=== PATIENT | male | born 1990 | race Hispanic/Latino ===

== ENCOUNTER 2022-07-26 11:54 | Emergency (ER) | payer OTHER, SELFPAY ==
--- NOTE | ~2022-07-26 | XR_ITS ---
Portable chest x-ray Comparison: None Clinical History: Cough Findings: Lungs are clear, without focal consolidation or pleural effusion. Cardiomediastinal silho uette is unremarkable. Bones and soft tissues are unremarkable. Impression: Normal chest. Reviewed, dictated and finalized at location . CTOR OF STRATEGIC COMMUNICATIONS Impression: Normal chest.
[2022-07-26 11:55] VITALS: BP 147/83; PULSE 109; RESP 16; TEMP 36.4; O2SAT 100
[2022-07-26 12:17] VITALS: O2SAT 99
[2022-07-26 13:17] LABS: Influenza A QL RT-PCR Negative (Negative); Influenza B QL RT-PCR Negative (Negative); SARS-CoV-2 RNA PCR Negative
[2022-07-26] MEDS: LIDOCAINE HCL 2% VISC SOLN 15 ML UDC PO (14:49)
[2022-07-26] MEDS: ACETAMINOPHEN 500 MG TABLET 1000 MG PO (14:50)
[2022-07-26] MEDS: ONDANSETRON HCL ODT 4 MG TABLET PO (14:50)
[2022-07-26] MEDS: BENZONATATE 100 MG CAPSULE 200 MG PO (14:50)
--- NOTE | 2022-07-26 15:05 | ED.URI ---
HPI - URI/Sore Throat General Chief Complaint: Upper Respiratory Infection Stated Complaint: upper respiratory Time Seen by Provider: 07/26/22 13:31 Source: patient Mode of arrival: ambulatory Limitations: no limitations History of Present Illness HPI Narrative: Patient is a 32-year-old male who presents to the ED with report of upper respiratory symptoms. Patient reports he began feeling unwell 1.5 days ago. He reports having cough, congestion, sore throat, headache, body aches, intermittent nausea. He has been taking Tylenol and wpev-tle-cocivso cough medicine for his symptoms. Denies any documented fever. Denies vomiting, abdominal pain, difficulty breathing. No sick contacts that he is aware of. Related Data Home Medications Medication Instructions Recorded Confirmed alprazolam 0.5 mg tablet 0.5 mg PO BID 05/18/19 pantoprazole 40 mg tablet,delayed 40 mg PO HS 05/18/19 07/26/22 release (Protonix) Allergies Allergy/AdvReac Type Severity Reaction Status Date / Time azithromycin Allergy Intermediate Unknown Verified 07/26/22 12:24 Penicillins Allergy Intermediate Unknown Verified 07/26/22 12:24 ibuprofen Allergy Mild Unknown Verified 07/26/22 12:24 naproxen Allergy Mild Unknown Verified 07/26/22 12:24 tramadol Allergy Mild Unknown Verified 07/26/22 12:24 Review of Systems Review of Systems: CONSTITUTIONAL: Denies fever, chills, or sweats. ENT: See HPI. CARDIOVASCULAR: Denies chest pain. RESPIRATORY: See HPI. GASTROINTESTINAL: See HPI. GENITOURINARY: Denies dysuria or hematuria. SKIN: Denies rash or itching. MUSCULOSKELETAL: See HPI. NEUROLOGIC: See HPI. All systems reviewed & are unremarkable except as noted in HPI and below PMFSH Past Medical History Medical History (Updated 07/26/22 @ 19:18 by Nadya Santos PA-C) Anxiety Surgical History Surgical History (Updated 07/26/22 @ 19:18 by Nadya Santos PA-C) No pertinent past surgical history Social History Social History Smoking status: Former smoker Gender identity (if verbalized by the patient): Male Exam Narrative: GENERAL: Mildly ill appearing, well-nourished, non-toxic, in no acute distress. HEAD: Normocephalic, atraumatic. EYES: PERRLA/EOMI, conjunctiva clear. ENT: Mild posterior pharynx erythema. No significant tonsillar hypertrophy or exudate. Uvula midline. Tolerating secretions. NECK: Supple. No adenopathy, no masses. RESPIRATORY: Airway patent, respirations nonlabored. Clear to auscultation bilaterally, no rales, rhonchi, wheezing. CARDIOVASCULAR: Regular rate and rhythm without murmurs, rubs, or gallops. Radial pulses 2+ and equal bilaterally. ABDOMINAL: Soft, nontender, nondistended, no hepatosplenomegaly. Normoactive BS. MUSCULOSKELETAL: Moves all extremities. Strength/ROM intact without gross deformities. SKIN: Warm, dry, normal color. No rashes. NEURO: A&O X3. Speech clear. Cranial nerves II-XII grossly intact. Steady gait. No ataxic movements. PSYCHIATRIC: Appropriate mood and affect. Normal interaction. Course Vital Signs Vital signs: Vital Signs Temperature 97.6 F 07/26/22 11:55 Pulse Rate 109 H 07/26/22 11:55 Respiratory Rate 16 07/26/22 11:55 Blood Pressure 147/83 H 07/26/22 11:55 Pulse Oximetry 100 07/26/22 11:55 Temperature 97.6 F 07/26/22 11:55 Pulse Rate 101 H 07/26/22 15:45 Respiratory Rate 18 07/26/22 15:45 Blood Pressure 138/81 07/26/22 15:45 Pulse Oximetry 100 07/26/22 15:45 Oxygen Delivery Room Air 07/26/22 12:17 MDM - URI/Sore Throat MDM Narrative Medical decision making narrative: Patient presented to ED with 2-day history of URI symptoms. Patient mildly tachycardic upon arrival, afebrile, otherwise stable. Tachycardia resolved by the time of my evaluation. COVID, influenza negative. Chest x-ray clear. Discussed that symptoms likely viral in nature. Attempted to give patient I
--- NOTE | 2022-07-26 15:43 | PC.NURSE ---
Pt refusing strep swab at this time
[2022-07-26 15:45] VITALS: BP 138/81; PULSE 101; RESP 18; O2SAT 100
== END 2022-07-26 16:01 | disposition home or self-care (01) ==
PROVIDERS: Emergency Medicine; Emergency Provider Physician Assistant
DX: J06.9 Acute upper respiratory infection, unspecified (principal); Z20.822 Contact with and (suspected) exposure to COVID-19; F41.9 Anxiety disorder, unspecified; Z87.891 Personal history of nicotine dependence
CPT/HCPCS: 71045; 87636; 99283; A9270

== ENCOUNTER 2024-05-20 15:35 | Emergency (ER) | payer OTHER, SELFPAY ==
[2024-05-20 15:48] VITALS: BP 147/95; PULSE 105; RESP 17; TEMP 36.8; O2SAT 100
== END 2024-05-20 18:17 | disposition left against medical advice (07) ==
LOC: ANHED 18:01
DX: H53.8 Other visual disturbances (principal)
CPT/HCPCS: 99199

== ENCOUNTER 2025-01-10 11:04 | Emergency (ER) | payer OTHER, SELFPAY ==
--- OUTSIDE RECORDS SUMMARY | 2025-01-10 11:07 | XMS_ITS | Clinical Summary ---
Author Organization [facility] Address [address] [place] [id number] Care Team Providers Care Customer Service Technician Name Role Phone Unavailable Primary Care Provider Unavailabl e Social History Tobacco Use Types Packs/Day Years Used Date Smoking Tobacco: Never Assessed Sex and Gender Information Value Date Recorded Sex Assigned at Not on file Legal Sex Male 8:02 PM CDT Gender Identity Not on file Sexual Orientation Not on file Plan of Treatment Health Maintenance Due Date Last Done Comments Annual Physical 1993 Hepatitis C 2008 DTaP, Tdap and Td Vaccines ( 1 - Tdap) 2009 Hepatitis B Vaccines (1 of 3 - 19+ 3-dose series) 2009 HPV Vaccines (1 - 3-dose SCD M series) 2017 COVID-19 Vaccine (2023-2 5 season) 2024 Meningococcal B Vaccine Aged Out No l onger eligible based on patient's age to complete this topic Meningococcal Vaccine Aged Out No jeni rick eligible based on patient's age to complete this topic Pneumococcal Vaccine: Pediat rics (0 to 5 Years) and At-Risk Patients (6 to 49 Years) Aged Out No longer eligible b ased on patient's age to complete this topic RSV Immunizations Under 20 Months Aged Out No longer eligible based on patient's age to complete this topic
--- OUTSIDE RECORDS SUMMARY | 2025-01-10 11:07 | XMS_ITS | Referral Summary ---
Author Organization [facility] Address [address] [place] [phone] Care Team Providers Care Retail Zone Specialist Name Role Phone Unknown, Notinfile Primary Care Provider Unavail able Allergies Active Allergy Reactions Criticality Noted Date Comments Ibuprofen Naproxen Penicillins Tramadol Medications guaiFENesin-dex tromethorphan ER (MUCINEX DM) 600-30 mg tablet extended release 12 hr Take 1 tablet by mouth 2 (two) times a day as needed (cough, congestion) 20 tablet 02/09/2024 Active chlorhexidine (PERIDEX) 0.12 % solution Swish and spit 15 mL 2 (two) times a day 120 mL 02/09/2024 Active oxyCODONE (ROXICODONE) 5 mg immediate release tabletIndicatio ns:Pain Take 1 tablet (5 mg total) by mouth every 6 (six) hours as needed for pain for up to 6 doses 6 tablet 06/01/2024 Active acetaminophen (TYLENOL) 500 mg tablet Take 2 tablets (1,000 mg total) by mouth every 6 (six) hours as needed for pain 30 tablet 06/01/2024 Active acetaminophen (TYLENOL) 500 mg tablet Take 1-2 tablets (500-1,000 mg total) by mouth every 6 (six) hours as needed for pain (1 tablet for mild to moderate pain. 2 tablets for severe pain) 30 tablet 06/03/2024 Active Social History Tobacco Use Types Packs/Day Years Used Date Smoking Tobacco: Never Assessed Personal Safety Answer Date Recorded Have you ever been in or are you currently in a harmful physical or emotional relationship or is someone making you feel afraid or unsafe? Denies 06/03/2024 Sex and Gender Information Value Date Recorded Sex Assigned at Not on file Legal Sex Male 8:28 AM BEHAVIORAL HEALTH CARE COORDINATOR Gender Identity Not on file Sexual Orientation Not on file Last Filed Vital Signs Vital Sign Reading Time Taken Comments Blood Pressure 171/98 06/03/2024 12:05 PM BEHAVIORAL HEALTH CARE COORDINATOR Pulse 107 06/03/2024 12:05 PM BEHAVIORAL HEALTH CARE COORDINATOR Temperature 36.8 C (98.2 F) 06/03/2024 12:05 PM BEHAVIORAL HEALTH CARE COORDINATOR Respiratory Rate 18 06/03/2024 12:05 PM BEHAVIORAL HEALTH CARE COORDINATOR Oxygen Saturation 97% 06/03/2024 12:05 PM BEHAVIORAL HEALTH CARE COORDINATOR Inhaled Oxygen Concentration - - Weight 77.1 kg (170 lb) 06/03/2024 12:19 PM BEHAVIORAL HEALTH CARE COORDINATOR Height 165.1 cm (5' 5) 06/03/2024 12:19 PM BEHAVIORAL HEALTH CARE COORDINATOR Body Mass Index 28.29 06/03/2024 12:19 PM BEHAVIORAL HEALTH CARE COORDINATOR Plan of Treatment Not on file Insurance Care Teams Retail Zone Specialist Relationship Specialty Start Date End Date Unknown, Notinfile PCP - General 02/10/24
--- OUTSIDE RECORDS SUMMARY | 2025-01-10 11:07 | XMS_ITS | Clinical Summary ---
Author Organization 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 INSTALLER Gender Identity Not on file Sexual Orientation Not on file Last Filed Vital Signs Vital Sign Reading Time Taken Comments Blood Pressure 171/98 06/03/2024 12:05 PM FAN INSTALLER Pulse 107 06/03/2024 12:05 PM FAN INSTALLER Temperature 36.8 C (98.2 F) 06/03/2024 12:05 PM FAN INSTALLER Respiratory Rate 18 06/03/2024 12:05 PM FAN INSTALLER Oxygen Saturation 97% 06/03/2024 12:05 PM FAN INSTALLER Inhaled Oxygen Concentration - - Weight 77.1 kg (170 lb) 06/03/2024 12:19 PM FAN INSTALLER Height 165.1 cm (5' 5) 06/03/2024 12:19 PM FAN INSTALLER Body Mass Index 28.29 06/03/2024 12:19 PM FAN INSTALLER Plan of Treatment Health Maintenance Due Date Last Done Comments Depression Screening 1990 Hepatitis C Screening 1990 DTaP/Tdap/Td Vaccine (1 - Tdap) 2001 Varicella Vaccines (1 of 2 - 13+ 2-dose series) 2003 Hepatitis B Screening 2008 Regular Well Visit/Exam 18-64 2008 Pneumococcal vaccine <65 (2 of 2 - PPSV23) 03/26/2017 01/29/2017 HPV Vaccines (1 - 3-dose SCDM series) 2017 Covid-19 Vaccine ( - season) 2024, 09/21/2020 Influenza Vaccine (#1) 2025 8, 04/10/2017, 04/09/[address] [place] [address] [place] [address] [facility] Care Teams Art Consultant Relationship Specialty Start Date End Date Unknown, Notinfile PCP - General 02/10/24
[2025-01-10 11:12] VITALS: BP 129/88; PULSE 116; RESP 20; TEMP 36.4; O2SAT 100
--- OUTSIDE RECORDS SUMMARY | 2025-01-10 11:38 | XMS_ITS | Clinical Summary ---
Author Organization [facility] Address [address] [place] [phone] Care Team Providers Care Bread Jockey Name Role Phone Unknown, Notinfile Primary Care [...] on file Legal Sex Male 8:28 AM SECURITY AMBASSADOR Gender Identity Not on file Sexual Orientation Not on file Last Filed Vital Signs Vital Sign Reading Time Taken Comments Blood Pressure 171/98 06/03/2024 12:05 PM SECURITY AMBASSADOR Pulse 107 06/03/2024 12:05 PM SECURITY AMBASSADOR Temperature 36.8 C (98.2 F) 06/03/2024 12:05 PM SECURITY AMBASSADOR Respiratory Rate 18 06/03/2024 12:05 PM SECURITY AMBASSADOR Oxygen Saturation 97% 06/03/2024 12:05 PM SECURITY AMBASSADOR Inhaled Oxygen Concentration - - Weight 77.1 kg (170 lb) 06/03/2024 12:19 PM SECURITY AMBASSADOR Height 165.1 cm (5' 5) 06/03/2024 12:19 PM SECURITY AMBASSADOR Body Mass Index 28.29 06/03/2024 12:19 PM SECURITY AMBASSADOR Plan of Treatment Health Maintenance Due Date [...] Vaccine (#1) 2025 8, 04/10/2017, 04/09/[address] [place] [address] [facility] Care Teams Bread Jockey Relationship Specialty Start Date End Date Unknown, Notinfile PCP - General 02/10/24
--- OUTSIDE RECORDS SUMMARY | 2025-01-10 11:38 | XMS_ITS | Referral Summary ---
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 Gender Identity Not on file Sexual Orientation Not on file Last Filed Vital Signs Vital Sign Reading Time Taken Comments Blood Pressure 171/98 06/03/2024 12:05 PM NETWORK FIELD ENGINEER Pulse 107 06/03/2024 12:05 PM NETWORK FIELD ENGINEER Temperature 36.8 C (98.2 F) 06/03/2024 12:05 PM NETWORK FIELD ENGINEER Respiratory Rate 18 06/03/2024 12:05 PM NETWORK FIELD ENGINEER Oxygen Saturation 97% 06/03/2024 12:05 PM NETWORK FIELD ENGINEER Inhaled Oxygen Concentration - - Weight 77.1 kg (170 lb) 06/03/2024 12:19 PM NETWORK FIELD ENGINEER Height 165.1 cm (5' 5) 06/03/2024 12:19 PM NETWORK FIELD ENGINEER Body Mass Index 28.29 06/03/2024 12:19 PM NETWORK FIELD ENGINEER Plan of Treatment Not on file Insurance Care Teams Monorail Hooker Relationship Specialty Start Date End Date Unknown, Notinfile PCP - General 02/10/24
--- OUTSIDE RECORDS SUMMARY | 2025-01-10 11:38 | XMS_ITS | Clinical Summary ---
Author Organization [facility] Address [address] [place] [id number] Care Team Providers Care Bagman/Woman Name Role Phone Unavailable Primary Care Provider [...]
--- NOTE | 2025-01-10 11:47 | ED_ITS ---
HPI - General Adult General Chief complaint: Dental/Oral Stated complaint: tooth pain Time Seen by Provider: 01/10/25 11:33 History of Present Illness HPI narrative: 34 old male presents emergency department for evaluation for dental pain. Patient reports pain has been ongoing for the last few weeks. Patient has been taking Tylenol for pain control. Patient reports he does have follow-up with a dentist scheduled. Related Data Home Medications ?Medication ?Instructions ?Recorded ?Confirmed ?Last Taken ?Type alprazolam 0.5 mg tablet 0.5 mg PO BID 05/18/19 Unknown History pantoprazole 40 mg tablet,delayed 40 mg PO HS 05/18/19 07/26/22 Unknown History release (Protonix) Allergies Allergy/AdvReac Type Severity Reaction Status Date / Time azithromycin Allergy Intermediate Unknown Verified 01/10/25 11:26 Penicillins Allergy Intermediate Unknown Verified 01/10/25 11:26 ibuprofen Allergy Mild Unknown Verified 01/10/25 11:26 naproxen Allergy Mild Unknown Verified 01/10/25 11:26 tramadol Allergy Mild Unknown Verified 01/10/25 11:26 Review of Systems Review of Systems: All systems reviewed & are unremarkable except as noted in HPI and below PMFSH Past Medical History Medical History (Updated 01/10/25 @ 11:48 by Alex Parrish MD) Anxiety Surgical History Surgical History (Updated 07/26/22 @ 19:18 by Nadya Santos PA-C) No pertinent past surgical history Social History Social History Smoking status: Former smoker Gender identity (if verbalized by the patient): Male Exam Narrative: APPEARANCE: Well appearing, no pain, no distress, well-nourished. HEAD: normocephalic, atraumatic. EYES: PERRLA/EOMI, conjunctivae clear. NOSE: Normal no drainage Mouth: No trismus, no dental abscess EARS:TMS clear with good light reflex. THROAT: Pharynx clear, no exudate. NECK: Supple. No adenopathy, no masses. RESPIRATORY: Airway patent, respirations nonlabored. Clear to auscultation bilaterally, no rales, rhonchi, wheezing. CARDIOVASCULAR: Regular rate and rhythm without murmurs rubs or gallops. ABDOMINAL: Soft, nontender, nondistended, normal bowel sounds MUSCULOSKELETAL: Moves all extremities. Strength/ROM intact, No edema, No calf tenderness. NEURO: Alert. Cranial nerves II through XII intact. Good gait. Good coordination SKIN: Warm, dry. Normal Color Course Vital Signs Vital signs: Vital Signs Temperature 97.5 F L 01/10/25 11:12 Pulse Rate 116 H 01/10/25 11:12 Respiratory Rate 20 01/10/25 11:12 Blood Pressure 129/88 01/10/25 11:12 Pulse Oximetry 100 01/10/25 11:12 Temperature 97.5 F L 01/10/25 11:12 Pulse Rate 116 H 01/10/25 11:12 Respiratory Rate 20 01/10/25 11:12 Blood Pressure 129/88 01/10/25 11:12 Pulse Oximetry 100 01/10/25 11:12 Medical Decision Making MDM Narrative Medical decision making narrative: [age] old male presents emergency department for evaluation for dental pain. Patient was provided antibiotics and started on medications for pain control as well. Patient states he does have follow-up with his dentist. Differential Diagnosis Differential Diagnosis: Dental infection, toothache, dental abscess, trismus Vital Signs Vital Signs: Vital Signs Temperature 97.5 F L 01/10/25 11:12 Pulse Rate 116 H 01/10/25 11:12 Respiratory Rate 20 01/10/25 11:12 Blood Pressure 129/88 01/10/25 11:12 Pulse Oximetry 100 01/10/25 11:12 Temperature 97.5 F L 01/10/25 11:12 Pulse Rate 116 H 01/10/25 11:12 Respiratory Rate 20 01/10/25 11:12 Blood Pressure 129/88 01/10/25 11:12 Pulse Oximetry 100 01/10/25 11:12 Discharge Plan Discharge Clinical Impression: Toothache Patient Disposition: Home Condition: Stable Instructions: Antibiotic Form, Toothache (ED) Additional Instructions: Antibiotic as directed until completed. [place] for pain control. Have close follow-up with your dentist as scheduled. Patient Language: Jamaican Prescriptions: New clindamycin HCl [Cleocin HCl] 300 mg capsule 300 mg PO Q6H 7 Days Qty: 28 0RF hydrocodone-acetaminophen 5-325 mg tablet 1 tablet PO Q12H PRN (Reason: pain) 5 Days Qty: 10 0RF No Action benzonatate 200 mg capsule 200 mg PO TID PRN (Reason: cough) Qty: 20 0RF ondansetron 4 mg tablet,disintegrating 4 mg PO Q8H PRN (Reason: nausea and vomiting) Qty: 20 0RF alprazolam 0.5 mg Tablet 0.5 mg PO BID pantoprazole [Protonix] 40 mg Tablet,Delayed Release (Dr/Ec) 40 mg PO HS chlorhexidine gluconate [Peridex] 0.12 % mouthwash 15 ml BUCCAL BID Qty: 1500 0RF clindamycin HCl 150 mg capsule 150 mg PO Q6H 10 Days Qty: 40 0RF Follow-up/Referrals: PHYSICIAN,PROGRAM PLANNER [Primary Care Provider] -
[2025-01-10] MEDS: HYDROcodone/acetaminophen (*CRX) 5-325 MG TABLET 1 TAB PO (11:53)
[2025-01-10] MEDS: CLINDAMYCIN HCL 150 MG CAP 300 MG PO (11:53)
== END 2025-01-10 12:03 | disposition home or self-care (01) ==
PROVIDERS: Emergency Provider Emergency Medicine
DX: K08.89 Other specified disorders of teeth and supporting structures (principal)
CPT/HCPCS: 99283; A9270

== ENCOUNTER 2025-03-09 08:08 | Emergency (ER) | payer OTHER, SELFPAY ==
[2025-03-09 08:14] VITALS: BP 164/119; PULSE 99; RESP 16; TEMP 36.8; O2SAT 100
--- OUTSIDE RECORDS SUMMARY | 2025-03-09 08:24 | XMS_ITS | Clinical Summary ---
Author Organization [facility] Address [address] [place] [address] Care Team Providers Care Meat Packer Name Role Phone Unavailable Primary Care Provider Unavailabl e Source Comments [facility],non-[facility] Affiliates and Associated Physician Practices is amultiple site organization consisting of ambulatory clinics and hospital sitesin [place], [place], [place] and [place]. This disclosure is being madepursuant to the Care Everywhere program and may not contain all information available regarding this patient. Last updated 18.[facility] Social History Tobacco Use Types Packs/Day Years Used Date Smoking Tobacco: Never Assessed Sex and Gender Information Value Date Recorded Sex Assigned at Not on file Legal Sex Male 5:42 AM CRYPTOGRAPHIC TECHNICIAN Gender Identity Not on file Sexual Orientation Not on file Plan of Treatment Upcoming Encounters Date Type Department Care Team (Late st Contact Info) Description 08/17/2025 10:20 AM CRYPTOGRAPHIC TECHNICIAN Office Visit [facility] - Internal Medicine [address] [place] [address] [address] [place] [address] David Rhodes MD [address] [place] [phone] Health Maintenance Due Date Last Done Comments HIV SCREENING 2005 HEPATITIS C SCREENING 07/19/2008 DTAP/TDAP/TD VACCINES (1 - Tdap) 2009 HEPATITIS B VACCINE (1 of 3 - 19+ 3-dose series) 2009 HPV VACCINE (1 - 3-dose SCDM series) 2017 DEPRESSION SCREENING 06/17/2024 COVID-19 VACCINE (3 2024-2 6 season) 2025 02/03/2021, 09/21/2020 INFLUENZA VACCINE (#1) 2025 8, 04/10/2017, 04/09/2009 ZOSTER VACCINE (1 of 2) 2040 HIB VACCINE Aged Out No longer eligi ble based on patient's age to complete this topic MENINGOCOCCAL (Group B) VACCINE SHARED DECISION-MAKING Aged Out No longer eligible based on patient's age to complete this topic MENINGOCOCCAL GROUPS A/C/Y/W VACCINE Aged Out No longer eligible b ased on patient's age to complete this topic PNEUMOCOCCAL VACCINE Aged Out No long er eligible based on patient's age to complete this topic Insurance MEDICAID - OUT OF [facility]
--- OUTSIDE RECORDS SUMMARY | 2025-03-09 08:24 | XMS_ITS | Clinical Summary ---
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 Gender Identity Not on file Sexual Orientation Not on file Last Filed Vital Signs Vital Sign Reading Time Taken Comments Blood Pressure 171/98 06/03/2024 12:05 PM ELECTROGALVANIZING MACHINE OPERATOR Pulse 107 06/03/2024 12:05 PM ELECTROGALVANIZING MACHINE OPERATOR Temperature 36.8 C (98.2 F) 06/03/2024 12:05 PM ELECTROGALVANIZING MACHINE OPERATOR Respiratory Rate 18 06/03/2024 12:05 PM ELECTROGALVANIZING MACHINE OPERATOR Oxygen Saturation 97% 06/03/2024 12:05 PM ELECTROGALVANIZING MACHINE OPERATOR Inhaled Oxygen Concentration - - Weight 77.1 kg (170 lb) 06/03/2024 12:19 PM ELECTROGALVANIZING MACHINE OPERATOR Height 165.1 cm (5' 5) 06/03/2024 12:19 PM ELECTROGALVANIZING MACHINE OPERATOR Body Mass Index 28.29 06/03/2024 12:19 PM ELECTROGALVANIZING MACHINE OPERATOR Plan of Treatment Health Maintenance Due Date Last Done Comments Depression Screening 1990 Hepatitis C Screening 1990 DTaP/Tdap/Td Vaccine (1 - Tdap) 2001 Varicella Vaccines (1 of 2 - 13+ 2-dose series) 2003 Hepatitis B Screening 2008 Regular Well Visit/Exam 18-64 2008 Pneumococcal vaccine <65 (2 of 2 - PPSV23, PCV20, or PCV21) 03/26/2017 01/29/2017 HPV Vaccines (1 - 3-dose SCDM series) 2017 Covid-19 Vaccine (3 - season) 2025, 09/21/2020 Influenza Vaccine (#1) 2025 8, 04/10/2017, 04/09/2009 Insurance [facility] Care Teams Construction Worker Relationship Specialty Start Date End Date Unknown, Notinfile PCP - General 02/10/24
--- OUTSIDE RECORDS SUMMARY | 2025-03-09 08:24 | XMS_ITS | Clinical Summary ---
Author Organization [facility] Address [address] [place] [id number] Care Team Providers Care Bill Hiker Name Role Phone Unavailable Primary Care Provider [...] series) 2017 COVID-19 Vaccine (2023-2 5 season) 2025 Meningococcal B Vaccine Aged Out No l [...]
--- NOTE | 2025-03-09 09:23 | ED_ITS ---
HPI - General Adult General Chief complaint: Skin/Abscess/Foreign Body Stated complaint: Skin infection to L thigh? Time Seen by Provider: 03/09/25 08:15 History of Present Illness HPI narrative: This is a 34-year-old male with a history of abscess and anxiety presenting with an abscess to his left thigh. Patient says he noticed a red bump 3 days ago. Has been getting progressively worse. No systemic signs of illness such as fevers chills nausea vomiting diarrhea. Patient has history of MRSA abscess. Family history of boils. Patient is incredibly anxious and asking if he is going to . Related Data Home Medications ?Medication ?Instructions ?Recorded ?Confirmed ?Last Taken ?Type albuterol sulfate 90 mcg/actuation inhalation 03/09/25 03/08/25 History aerosol inhaler Allergies Allergy/AdvReac Type Severity Reaction Status Date / Time azithromycin Allergy Intermediate Unknown Verified 03/09/25 08:26 Penicillins Allergy Intermediate Unknown Verified 03/09/25 08:26 ibuprofen Allergy Mild Unknown Verified 03/09/25 08:26 naproxen Allergy Mild Unknown Verified 03/09/25 08:26 tramadol Allergy Mild Unknown Verified 03/09/25 08:26 [facility] Past Medical History Medical History (Updated 03/09/25 @ 09:27 by Rashaad Shaffer MD) Anxiety Surgical History Surgical History (Updated 07/26/22 @ 19:18 by Nadya Santos PA-C) No pertinent past surgical history Social History Social History Smoking status: Former smoker Gender identity (if verbalized by the patient): Male Exam Narrative: APPEARANCE: Patient is incredibly anxious Head: atraumatic. EYES: EOMI, NOSE: Atraumatic NECK: Trachea midline RESPIRATORY: No increased rate of breathing CARDIOVASCULAR: RRR, ABDOMINAL: Non-distended MUSCULOSKELETAl: No obvious deformities NEURO: Alert. Moving 4/4 extremities SKIN:: Focal exam of the left inner thigh revealed a 2 x 2 cm area of fluctuance with some mild induration and erythema. Point of care ultrasound s howed a superficial fluid collection with cobblestoning. No free air. No crepitus. PSYCHIATRIC: Normal affect Course Vital Signs Vital signs: Vital Signs Temperature 98.2 F 03/09/25 08:14 Pulse Rate 99 03/09/25 08:14 Respiratory Rate 16 03/09/25 08:14 Blood Pressure 164/119 H 03/09/25 08:14 Pulse Oximetry 100 03/09/25 08:14 Oxygen Delivery Room Air 03/09/25 08:14 Temperature 98.2 F 03/09/25 08:14 Pulse Rate 99 03/09/25 08:14 Respiratory Rate 16 03/09/25 08:14 Blood Pressure 164/119 H 03/09/25 08:14 Pulse Oximetry 100 03/09/25 08:14 Oxygen Delivery Room Air 03/09/25 08:14 Procedures Abscess I/D lower extremity: Date of Incision: 03/09/25 Side (if applicable): left Local Anesthetic: bupivacaine 0.25% Amount of anesthesia used (mL): 10 Technique: incised with #11 blade Amount of fluid expressed (mL): 3 Irrigation: No Packing used?: none I&D Results: Pus Complications: pain Medical Decision Making MDM Narrative Medical decision making narrative: -Course: Anxious 34-year-old male presenting with a small abscess to his left inner thigh. Exam shows a small area of fluctuance with some mild induration. Point of care ultrasound showed a superficial see fluid collection and some cobblestoning. No free air ultrasound exam. No crepitus on exam. No systemic signs of illness. And incision and drainage was performed. Patient will be discharged on clindamycin and given tramadol for pain. Patient has frequently asked for stronger pain medications and declined Tylenol and Toradol. -DDX includes but is not limited to: Anxiety, abscess, cellulitis, drug-seeking -Co-morbidities complicating care: Anxiety Vital Signs Vital Signs: Vital Signs Temperature 98.2 F 03/09/25 08:14 Pulse Rate 99 03/09/25 08:14 Respiratory Rate 16 03/09/25 08:14 Blood Pressure 164/119 H 03/09/25 08:14 Pulse Oximetry 100 03/09/25 08:14 Oxygen Delivery Room Air 03/09/25 08:14 Temperature 98.2 F 03/09/25 08:14 Pulse Rate 99 03/09/25 08:14 Respiratory Rate 16 03/09/25 08:14 Blood Pressure 164/119 H 03/09/25 08:14 Pulse Oximetry 100 03/09/25 08:14 Oxygen Delivery Room Air 03/09/25 08:14 Discharge Plan Discharge Clinical Impression: Abscess Patient Disposition: Home Condition: Stable Instructions: Antibiotic Form, Abscess (ED) Additional Instructions: Please complete the antibiotics as instructed. Please follow-up with your primary care physician or the physician listed below. Use tylenol and tramadol for pain. Return if you develop fevers, or if the abscess is reaccumulating. Patient Language: Vietnamese Prescriptions: New clindamycin HCl [Cleocin HCl] 300 mg capsule 300 mg PO Q6H 7 Days Qty: 28 0RF acetaminophen 500 mg tablet 1,000 mg PO TID PRN (Reason: yamileth) 7 Days Qty: 42 0RF tramadol 50 mg tablet 50 mg PO Q6H PRN (Reason: pain) Qty: 7 0RF No Action albuterol sulfate 90 mcg/actuation HFA aerosol inhaler INHALATION Follow-up/Referrals: Neil Vieira MD [Physician, Family Practice] - 1 Week PHYSICIAN,YARD ASSOCIATE [Primary Care Provider, Internal Medicine]
[2025-03-09] MEDS: traMADol HCL (*CRX) 50 MG TABLET PO (09:46)
[2025-03-09 09:53] VITALS: BP 136/94; PULSE 96; RESP 16; O2SAT 99
== END 2025-03-09 09:55 | disposition home or self-care (01) ==
PROVIDERS: Emergency Provider Emergency Medicine
DX: L02.416 Cutaneous abscess of left lower limb (principal); Z86.14 Personal history of Methicillin resistant Staphylococcus aureus infection
CPT/HCPCS: 10060; 99283; A9270